=== PATIENT | female | born 1945 | race Caucasian/White ===

== ENCOUNTER 2018-08-18 06:09 | Day surgery (SDC) | payer MEDICARE, OTHER ==
[~2018-08-18 06:09] MED LIST: EPINEPHrine 1 MG/ML SDV ONE; Lactated Ringers 1,000 ML IV SCH; Lidocaine 1%/Sod Bicarbonate in NS 8.4% 1 ML Syringe IDERM PRN; Ropivacaine 0.5% 5 MG/ML 30 ML SDV ONE; Scopolamine 1.5 MG Transdermal Patch TRDERM ONE; Scopolamine 1.5 MG Transdermal Patch TRDERM PRN; Sodium Chloride 0.9% 10 ML Syringe FLUSH PRN
[2018-08-18] MEDS ORDERED: fentaNYL 100 MCG/2 ML SDV ONE (06:18)
[2018-08-18] MEDS ORDERED: Midazolam 1 MG/ML 2 ML SDV ONE (06:18)
[2018-08-18] MEDS ORDERED: Ondansetron 4 MG/2 ML SDV ONE (06:18)
[2018-08-18] MEDS ORDERED: Propofol 200 MG/20 ML SDV ONE ×2 (06:18→08:13)
[2018-08-18] MEDS ORDERED: Lactated Ringers 1,000 ML ONE (06:24)
[2018-08-18] MEDS ORDERED: Bupivacaine 0.75% 30 ML SDV ONE (06:24)
[2018-08-18] MEDS ORDERED: ceFAZolin 1 GM Vial ONE (06:26)
[2018-08-18] MEDS ORDERED: Iodine/Sodium Iodide 2% Tincture 30 ML Bottle ONE (06:26)
--- NOTE | 2018-08-18 06:46 | PCM.PREANE ---
Preanesthetic Assessment - Procedure Proposed Procedure: left total knee replacement - Anesthesia/Transfusion/Family Hx Anesthesia History: Prior Anesthesia Reaction Type of Anesthesia Reaction: Excessive Nausea/Vomiting Family History of Anesthesia Reaction: No Transfusion History: No Prior Transfusion(s) - Review of Systems General: No Symptoms Pulmonary: No Symptoms Cardiovascular: No Symptoms Gastrointestinal: No Symptoms Neurological: No Symptoms Other: Reports: Anxiety - Physical Assessment NPO Status Date: 08/17/18 NPO Status Time: 21:30 O2 Sat by Pulse Oximetry: 98 Respiratory Rate: 16 Vital Signs: Last Vital Signs Temp 97.9 F 08/18/18 06:20 Pulse 66 08/18/18 06:20 Resp 16 08/18/18 06:20 BP 113/72 08/18/18 06:20 Pulse Ox 98 08/18/18 06:20 Height: 5 ft 4 in Weight: 62.777 kg ASA Class: 2 Mental Status: Alert & Oriented x3 Airway Class: Mallampati = 1 Dentition: Reports: Normal Dentition Thyro-Mental Finger Breadths: 3 Mouth Opening Finger Breadths: 3 ROM/Head Extension: Full Lungs: Clear to Auscultation, Normal Respiratory Effort Cardiovascular: Regular Rate, Regular Rhythm - Lab Values: Laboratory Last Values POC Glucose 78 mg/dL (83-110) L 08/18/18 06:35 MRSA (PCR) Negative 07/22/18 12:39 - Allergies Allergies/Adverse Reactions: Allergies Allergy/AdvReac Type Severity Reaction Status Date / Time buspirone [From BuSpar] Allergy Hives Verified 08/17/18 15:15 chocolate flavor Allergy Hives Verified 08/17/18 15:15 mirtazapine [From Remeron] Allergy Lethargy Verified 08/17/18 15:15 sertraline Allergy Hives Verified 08/17/18 15:15 Sulfa (Sulfonamide Allergy Nausea and Verified 08/17/18 15:15 Antibiotics) Vomiting SSRIs Allergy Hives Uncoded 08/17/18 15:15 - Blood Blood Available: No - Acknowledgements Anesthesia Type Planned: Spinal Pt an Appropriate Candidate for the Planned Anesthesia: Yes Alternatives and Risks of Anesthesia Discussed w Pt/Guardian: Yes Pt/Guardian Understands and Agrees with Anesthesia Plan: Yes PreAnesthesia Questionnaire HEENT History: Reports: Allergic Rhinitis, Cataract, Impaired Vision Cardiovascular History: Reports: Other (See Below) Other Cardiovascular History: venous insufficiency, varicose veins with bilateral ligation Respiratory History: Reports: None, Other (See Below) Gastrointestinal History: Reports: Hemorrhoids, Other (See Below) Other Gastrointestinal History: c diff, anal fissure, diarrhea Genitourinary History: Reports: None [employer] History: Reports: Other (See Below) Other OB/BYN History: atrophic vaginits, perineal rash Musculoskeletal History: Reports: Arthritis, Osteoporosis, Other (See Below) Other Musculoskeletal History: knee pain Neurological History: Reports: None Psychiatric History: Reports: Anxiety Endocrine/Metabolic History: Reports: None Hematologic History: Reports: None Immunologic History: Reports: None Oncologic (Cancer) History: Reports: None Dermatologic History: Reports: Other (See Below) Other Dermatologic History: nipple lesion, superfical thrombophlebitis, MOHs surgery - Infectious Disease History Infectious Disease History: Reports: C-Difficile - Past Surgical History Head Surgeries/Procedures: Reports: None HEENT Surgical History: Reports: Cataract Surgery, Tonsillectomy Cardiovascular Surgical History: Reports: None Respiratory Surgical History: Reports: None GI Surgical History: Reports: Cholecystectomy Female Surgical History: Reports: D&C Endocrine Surgical History: Reports: None Neurological Surgical History: Reports: None Oncologic Surgical History: Reports: None - SUBSTANCE USE Smoking Status *Q: Former Smoker (quit 25 years ago) Tobacco Use Within Last Twelve Months: No Second Hand Smoke Exposure: No Days Per Week of Alcohol Use: 1 (rare) Recreational Drug Use History: No - HOME MEDS Home Medications: Home Meds Ca Carbonate/Vitamin D3/Vit K [Calcium + D Soft Chewable Tab] 1 tab PO DAILY [History] Cholecalciferol (Vitamin D3) [Vitamin D3] 1,000 unit PO DAILY 08/17/18 [History] ClonazePAM [KlonoPIN] 0.5 mg PO TID PRN 08/17/18 [History] L Acidophil/B Lactis/B Longum [Florajen3] 460 mg PO DAILY 08/17/18 [History] Nepafenac [Ilevro] 1 drop EYEBOTH DAILY 08/17/18 [History] Vit C/E/Zn/Coppr/Lutein/Zeaxan [Preservision Areds 2 Softgel] 1 cap PO DAILY [History] - CURRENT (IN HOUSE) MEDS Current Meds: Current Medications Lactated Ringer's (Ringers, Lactated) 1,000 mls @ 125 mls/hr IV ASDIRECTED [facility] Lidocaine/Sodium Bicarbonate (Buffered Lidocaine 1% In Ns 8.4%) 0.25 ml IDERM ONETIME PRN PRN Reason: Prior to IV Start Miscellaneous Information (Remove Patch) 1 ea TRDERM ONETIME [facility] Scopolamine (Transderm-Scop) 1.5 mg TRDERM ONETIME PRN PRN Reason: Nausea Sodium Chloride (Saline Flush) 10 ml FLUSH ASDIRECTED PRN PRN Reason: Keep Vein Open Discontinued Medications Bupivacaine HCl (Sensorcaine-Mpf 0.75%) Confirm Administered Dose 30 ml .ROUTE .STK-MED ONE Stop: 08/18/18 06:25 Bupivacaine HCl (Marcaine 0.25%) Confirm Administered Dose 30 ml .ROUTE .STK- MED ONE Stop: 08/18/18 06:27 Cefazolin Sodium (Ancef) Confirm Administered Dose 2 gm .ROUTE .STK-MED ONE Stop: 08/18/18 06:19 Cefazolin Sodium (Ancef) Confirm Administered Dose 2 gm .ROUTE .STK-MED ONE Stop: 08/18/18 06:27 Epinephrine HCl (Adrenalin) Confirm Administered Dose 1 mg .ROUTE .STK-MED ONE Stop: 08/18/18 06:09 Fentanyl (Sublimaze) Confirm Administered Dose 100 mcg .ROUTE .STK-MED ONE Stop: 08/18/18 06:19 Lactated Ringer's (Ringers, Lactated) 1,000 mls @ 125 mls/hr IV ASDIRECTED [facility] Lidocaine HCl (Xylocaine-Mpf 1%) Confirm Administered Dose 5 mls @ as directed .ROUTE .STK-MED ONE Stop: 08/18/18 06:24 Lactated Ringer's (Ringers, Lactated) Confirm Administered Dose 1,000 mls @ as directed .ROUTE .STK-MED ONE Stop: 08/18/18 06:25 Iodine (Iodine 2% Mild Tincture) Confirm Administered Dose 30 ml .ROUTE .STK- MED ONE Stop: 08/18/18 06:27 Lidocaine/Sodium Bicarbonate (Buffered Lidocaine 1% In Ns 8.4%) 0.25 ml IDERM ONETIME PRN PRN Reason: Prior to IV Start Midazolam HCl (Versed 1 Mg/Ml) Confirm Administered Dose 2 mg .ROUTE .STK-MED ONE Stop: 08/18/18 06:19 Ondansetron HCl (Zofran) Confirm Administered Dose 4 mg .ROUTE .STK-MED ONE Stop: 08/18/18 06:19 Propofol (Diprivan 20 Ml) Confirm Administered Dose 400 mg .ROUTE .STK-MED ONE Stop: 08/18/18 06:19 Ropivacaine (Naropin 0.5%) Confirm Administered Dose 30 ml .ROUTE .STK-MED ONE Stop: 08/18/18 06:09 Scopolamine (Transderm-Scop) 0 mg TRDERM ONETIME ONE Stop: 08/17/18 09:36 Sodium Chloride (Saline Flush) 10 ml FLUSH ASDIRECTED PRN PRN Reason: Keep Vein Open Tranexamic Acid (Cyklokapron) Confirm Administered Dose 1,000 mg .ROUTE .STK- MED ONE Stop: 08/18/18 06:27 Vancomycin HCl (Vancomycin) Confirm Administered Dose 1 gm .ROUTE .STK-MED ONE Stop: 08/18/18 06:27
[2018-08-18] MEDS ORDERED: fentaNYL 100 MCG/2 ML SDV IVPUSH PRN (07:31)
[2018-08-18] MEDS ORDERED: Ondansetron 4 MG/2 ML SDV IVPUSH PRN ×2 (07:31→09:30)
[2018-08-18] MEDS ORDERED: ePHEDrine/Normal Saline 25 MG/5 ML Syringe ONE (07:32)
[2018-08-18] MEDS: Morphine 8 MG, EPINEPHrine 0.3 MG, Cefuroxime 750 MG, Ketorolac 30 MG, Sodium Chloride ... ONE ×10 (08:21→08:24)
[2018-08-18] MEDS: ceFAZolin 1 GM Vial ONE ×2 (08:21→08:24)
[2018-08-18] MEDS: Bupivacaine 0.25% 30 ML SDV ONE ×2 (08:22→08:24)
[2018-08-18] MEDS: Vancomycin 1 GM SDV ONE ×2 (08:22→08:27)
[2018-08-18] MEDS ORDERED: Phenylephrine/Normal Saline 100 MCG/ML 10 ML Syringe ONE (08:31)
--- NOTE | 2018-08-18 09:00 | PCM.POSTAN ---
POST ANESTHESIA ASSESSMENT - MENTAL STATUS Mental Status: Alert, Oriented - VITAL SIGNS Pulse Rate: 87 SaO2: 97 Resp Rate: 15 Blood Pressure: 105/54 Temperature: 97.9 F - RESPIRATORY Respiratory Status: Respiratory Rate WNL, Airway Patent, O2 Saturation Stable, Supplemental Oxygen - CARDIOVASCULAR CV Status: Pulse Rate WNL, Blood Pressure Stable - GASTROINTESTINAL GI Status: No Symptoms - PAIN Pain Score: 0 - POST OP HYDRATION Hydration Status: Adequate & Stable
--- NOTE | 2018-08-18 09:25 | PCM.SN ---
- Free Text/Narrative Note: Left selective femoral nerve block at the adductor canal for post-procedure pain control under US guidance requested by Dr. Mccormack. Time Out: 906 Start: 906 End: 916 Chart reviewed. Consent signed. Questions answered. Appropriate monitors applied. Time out performed. Left mid-shaft femur identified with ultrasound, scanning medially of femur, the femoral artery in the adductor canal visualized , and the femoral nerve located laterally to the artery. The skin was prepped lateral to the ultrasound probe with chlorahexadine times two. The 21ga 4 insulated block needle was inserted under direct ultrasound guidance into the adductor canal. 30mL of 0.5% ropivacaine with 1:200,000 epinephrine was injected circumferentially around the nerve with intermittent negative aspiration noted. Patient tolerated the procedure well. Sterile technique noted along with sterile gloves, mask, and sterile probe cover. See picture on progress note and vital signs on nurses notes. Block completed in PACU. Pedro Luis Mac CRNA
[2018-08-18] MEDS ORDERED: Naloxone 0.4 MG/ML SDV IVPUSH PRN (09:30)
[2018-08-18] MEDS ORDERED: Sennosides 8.6 MG Tab PO PRN (09:30)
[2018-08-18] MEDS ORDERED: Cyclobenzaprine 10 MG Tab PO PRN (09:30)
[2018-08-18] MEDS ORDERED: Bisacodyl 5 MG Tab PO PRN (09:30)
[2018-08-18] MEDS ORDERED: Magnesium Hydroxide 400 MG/5 ML Susp 30 ML Cup PO PRN (09:30)
--- NOTE | 2018-08-18 09:59 | CR ---
Left knee: AP and lateral views of the left knee were obtained. Comparison: Prior left knee radiographic study of 07/24/16. Knee prosthesis is seen. Components are aligned. Soft tissue air is noted from the surgical procedure. Underlying bony structures are intact. Impression: 1. Satisfactory postop radiographic appearance of recently placed left knee prosthesis. Diagnostic code #2
[2018-08-18] MEDS ORDERED: ClonazePAM 0.5 MG Tab PO PRN (12:44)
[2018-08-18] MEDS: ceFAZolin 2 GM in Premix Bag 1 BAG IV SCH ×2 (14:38→22:05)
--- NOTE | 2018-08-18 17:06 | PCM.SN ---
- Free Text/Narrative Note: Jodie is a 73 [address] of Dr[address] Mccormack who is post-operative day 0 of L TKA. Hospital medicine was consulted for post-operative medical care. At this time she is stable. Pain is controlled. She denies any chest pain, shortness of breath, palpitations, nausea, or vomiting. She carries a history of: Anxiety, Osteoporosis, Postmenopausal, venous insufficiency, Cdiff, superfical thrombophlebitis. She is a former smoker, quit 25 years ago. She is a full code. Her PCP is Stephanie Rose PA-C.
[2018-08-18] MEDS: Ketorolac 15 MG/ML SDV IVPUSH PRN (17:36)
[2018-08-18] MEDS: Famotidine 20 MG Tab PO SCH (20:08)
[2018-08-18] MEDS: Docusate Sodium 100 MG Cap PO SCH (20:08)
[2018-08-18] MEDS: Acetaminophen/HYDROcodone 325-5 MG Tab PO PRN (20:10)
[2018-08-19] MEDS: Acetaminophen/HYDROcodone 325-5 MG Tab PO PRN ×3 (01:14→12:09)
[2018-08-19] MEDS: Ketorolac 15 MG/ML SDV IVPUSH PRN (01:15)
[2018-08-19] MEDS: ceFAZolin 2 GM in Premix Bag 1 BAG IV SCH (06:02)
--- NOTE | 2018-08-19 06:27 | PCM.SN ---
- Free Text/Narrative Note: In to see Jodie. She is sitting up in a chair and nursing is in the room. She is postop day 1 of a left total knee arthroplasty. She reports pain is controlled on she is somewhat sleepy from her pain pills. She answers questions appropriately. She's been up working with therapies and says she is doing well. She has been ambulating. She has urinated and is off of oxygen. She has no complaint at this time. She denies any headache, nausea, vomiting, shortness of breath, chest pain, palpitations, abdominal pain, or burning with urination. She did have a brief episode of lightheadedness after receiving her pain pill but does report that resolved with her morning meal. Physical exam is grossly unremarkable with good lung sounds throughout all quadrants, normal S1 and S2, regular rate and rhythm. Bowel sounds are active with no tenderness noted. Bandages in place on left knee and is dry and intact. Going back is in place. She is neurovascularly intact with good sensation and pulses in all extremities. Labs are reviewed and her preoperative hemoglobin was noted to be 12.3. It is now 11.4. Preoperative BUN was 25 and is now 17. GFR is currently greater than 60. Vital signs were reviewed and are stable. From a hospitalist standpoint she is doing very well. She is clear for discharge pending primary team and PT/OT agreement.
--- NOTE | 2018-08-19 08:35 | PCM.SURGPN ---
- General Info Date of Service: 08/19/18 POD#: 1 Functional Status: Reports: Pain Controlled, Tolerating Diet, Ambulating, Urinating, Incentive Spirometry, Other (The pt's daughter was present with pt today.) - Patient Data Vitals - Most Recent: Last Vital Signs Temp 98.4 F 08/19/18 04:19 Pulse 72 08/19/18 04:19 Resp 18 08/19/18 04:00 BP 106/62 08/19/18 04:19 Pulse Ox 93 L 08/19/18 04:19 Weight - Most Recent: 145 lb 8 oz I&O - Last 24 Hours: Intake & Output 08/18/18 08/19/18 08/19/18 22:59 06:59 14:59 Intake Total 920 850 Output Total 400 1200 Balance 520 -350 Lab Results Last 24 Hrs: Laboratory Results - last 24 hr 08/19/18 08/19/18 Range/Units 06:30 06:30 WBC 4.96 (3.98-10.04) K/mm3 RBC 3.97 L (3.98-5.22) M/mm3 Hgb 11.4 (11.2-15.7) gm/L Hct 36.8 (34.1-44.9) % MCV 92.7 (79.4-94.8) fl MCH 28.7 (25.6-32.2) pg MCHC 31.0 L (32.2-35.5) g/dl RDW Std Deviation 46.5 H (36.4-46.3) fL Plt Count 199 (182-369) K/mm3 MPV 10.2 (9.4-12.3) fl Sodium 141 (136-145) mEq/L Potassium 4.1 (3.5-5.1) mEq/L Chloride 106 (98-107) mEq/L Carbon Dioxide 29 (21-32) mEq/L Anion Gap 10.1 (5-15) BUN 17 (7-18) mg/dL Creatinine 0.8 (0.55-1.02) mg/dL Est Cr Clr Drug Dosing 52.47 mL/min Estimated GFR (MDRD) > 60 (>60) mL/min BUN/Creatinine Ratio 21.3 H (14-18) Glucose 106 (83-115) mg/dL Calcium 8.7 (8.5-10.1) mg/dL Total Bilirubin 0.5 (0.2-1.0) mg/dL AST 23 (15-37) U/L ALT 20 (14-59) U/L Alkaline Phosphatase 59 (46-116) U/L Total Protein 6.0 L (6.4-8.2) g/dl Albumin 2.9 L (3.4-5.0) g/dl Globulin 3.1 gm/dL Albumin/Globulin Ratio 0.9 L (1-2) Med Orders - Current: Current Medications Hydrocodone Bitart/Acetaminophen (Mobile 325-5 Mg) 1 - 2 tab PO Q4H PRN PRN Reason: Pain Last Admin: 08/19/18 05:58 Dose: 2 tab Aspirin (Ecotrin) 325 mg PO BID [facility] Bisacodyl (Dulcolax) 5 mg PO DAILY PRN PRN Reason: Constipation Cholecalciferol (Vitamin D3) 1,000 units PO DAILY [facility] Clonazepam (Klonopin) 0.5 mg PO TID PRN PRN Reason: Anxiety Cyclobenzaprine HCl (Flexeril) 10 mg PO BID PRN PRN Reason: Spasms Docusate Sodium (Colace) 100 mg PO BID [facility] Last Admin: 08/18/18 20:08 Dose: 100 mg Famotidine (Pepcid) 20 mg PO Q12H [facility] Last Admin: 08/18/18 20:08 Dose: 20 mg Magnesium Hydroxide (Milk Of Magnesia) 30 ml PO BID PRN PRN Reason: Constipation Miscellaneous Information (Remove Patch) 1 ea TRDERM ONETIME [facility] Naloxone HCl (Narcan) 0.1 mg IVPUSH Q5M PRN PRN Reason: Oversedation Ondansetron HCl (Zofran) 4 mg IVPUSH Q6H PRN PRN Reason: Nausea/Vomiting Nepafenac [Ilevro] 1 (Drop) 0 each EYEBOTH DAILY [facility] Saccharomyces Boulardii (Florastor) 250 mg PO DAILY [facility] Scopolamine (Transderm-Scop) 1.5 mg TRDERM ONETIME PRN PRN Reason: Nausea Last Admin: 08/18/18 07:03 Dose: 1.5 mg Senna (Senna) 8.6 mg PO BID PRN PRN Reason: Constipation Sodium Chloride (Saline Flush) 10 ml FLUSH ASDIRECTED PRN PRN Reason: Keep Vein Open Discontinued Medications Bupivacaine HCl (Sensorcaine-Mpf 0.75%) Confirm Administered Dose 30 ml .ROUTE .STK-MED ONE Stop: 08/18/18 06:25 Bupivacaine HCl (Marcaine 0.25%) Confirm Administered Dose 30 ml .ROUTE .STK- MED ONE Stop: 08/18/18 06:27 Last Admin: 08/18/18 08:24 Dose: 30 ml Cefazolin Sodium (Ancef) Confirm Administered Dose 2 gm .ROUTE .STK-MED ONE Stop: 08/18/18 06:19 Last Admin: 08/18/18 08:24 Dose: 2 gm Cefazolin Sodium (Ancef) Confirm Administered Dose 2 gm .ROUTE .STK-MED ONE Stop: 08/18/18 06:27 Morphine Sulfate 8 mg/Epinephrine HCl 0.3 mg/Cefuroxime Sodium 750 mg/Ketorolac Tromethamine 30 mg/Sodium Chloride 27.9 ml 0 mg .XX ONETIME ONE Stop: 08/18/18 07:31 Last Admin: 08/18/18 08:24 Dose: 788.3 mg Ephedrine Sulfate (Ephedrine In Ns) Confirm Administered Dose 25 mg .ROUTE .STK- MED ONE Stop: 08/18/18 07:33 Epinephrine HCl (Adrenalin) Confirm Administered Dose 1 mg .ROUTE .STK-MED ONE Stop: 08/18/18 06:09 Fentanyl (Sublimaze) Confirm Administered Dose 100 mcg .ROUTE .STK-MED ONE Stop: 08/18/18 06:19 Fentanyl (Sublimaze) 50 mcg IVPUSH Q5M PRN PRN Reason: Pain Stop: 08/18/18 12:00 Lactated Ringer's (Ringers, Lactated) 1,000 mls @ 125 mls/hr IV ASDIRECTED [facility] Lactated Ringer's (Ringers, Lactated) 1,000 mls @ 125 mls/hr IV ASDIRECTED [facility] Last Admin: 08/18/18 06:30 Dose: 125 mls/hr Lidocaine HCl (Xylocaine-Mpf 1%) Confirm Administered Dose 5 mls @ as directed .ROUTE .STK-MED ONE Stop: 08/18/18 06:24 Lactated Ringer's (Ringers, Lactated) Confirm Administered Dose 1,000 mls @ as directed .ROUTE .STK-MED ONE Stop: 08/18/18 06:25 Cefazolin Sodium/Dextrose 2 gm (/ Premix) 50 mls @ 100 mls/hr IV Q8H [facility] Stop: 08/19/18 07:29 Last Admin: 08/19/18 06:02 Dose: 100 mls/hr Iodine (Iodine 2% Mild Tincture) Confirm Administered Dose 30 ml .ROUTE .STK- MED ONE Stop: 08/18/18 06:27 Last Admin: 08/18/18 08:20 Dose: 18 ml Ketorolac Tromethamine (Toradol) 15 mg IVPUSH Q6H PRN PRN Reason: Pain Last Admin: 08/19/18 01:15 Dose: 15 mg Lidocaine/Sodium Bicarbonate (Buffered Lidocaine 1% In Ns 8.4%) 0.25 ml IDERM ONETIME PRN PRN Reason: Prior to IV Start Lidocaine/Sodium Bicarbonate (Buffered Lidocaine 1% In Ns 8.4%) 0.25 ml IDERM ONETIME PRN PRN Reason: Prior to IV Start Last Admin: 08/18/18 06:25 Dose: 0.25 ml Midazolam HCl (Versed 1 Mg/Ml) Confirm Administered Dose 2 mg .ROUTE .STK-MED ONE Stop: 08/18/18 06:19 Ondansetron HCl (Zofran) Confirm Administered Dose 4 mg .ROUTE .STK-MED ONE Stop: 08/18/18 06:19 Ondansetron HCl (Zofran) 4 mg IVPUSH ONETIME PRN PRN Reason: Nausea/Vomiting Stop: 08/18/18 12:00 Phenylephrine HCl (Phenylephrine In Ns 100 Mcg/Ml) Confirm Administered Dose 1 mg .ROUTE .STK-MED ONE Stop: 08/18/18 08:32 Propofol (Diprivan 20 Ml) Confirm Administered Dose 400 mg .ROUTE .STK-MED ONE Stop: 08/18/18 06:19 Propofol (Diprivan 20 Ml) Confirm Administered Dose 200 mg .ROUTE .STK-MED ONE Stop: 08/18/18 08:14 Ropivacaine (Naropin 0.5%) Confirm Administered Dose 30 ml .ROUTE .STK-MED ONE Stop: 08/18/18 06:09 Scopolamine (Transderm-Scop) 0 mg TRDERM ONETIME ONE Stop: 08/17/18 09:36 Sodium Chloride (Saline Flush) 10 ml FLUSH ASDIRECTED PRN PRN Reason: Keep Vein Open Tranexamic Acid (Cyklokapron) Confirm Administered Dose 1,000 mg .ROUTE .STK- MED ONE Stop: 08/18/18 06:27 Last Admin: 08/18/18 08:31 Dose: 1,000 mg Vancomycin HCl (Vancomycin) Confirm Administered Dose 1 gm .ROUTE .STK-MED ONE Stop: 08/18/18 06:27 Last Admin: 08/18/18 08:27 Dose: 1 gm - Exam Wound/Incisions: Dressing Dry and Intact General: Alert, Cooperative, No Acute Distress Lungs: Normal Respiratory Effort Extremities: Other (NVS intact for BLE. Jr's negative.) - Problem List Review Problem List Initiated/Reviewed/Updated: Yes - My Orders Last 24 Hours: Active Orders 24 hr Category Date Time Status Ready for Discharge [RC] PER UNIT ROUTINE Care 08/19/18 08:23 Active Regular Diet [DIET] Diet 08/18/18 Lunch Active Acetaminophen/HYDROcodone [Mobile 325-5 MG] Med 08/18/18 09:30 Active 1 - 2 tab PO Q4H PRN Aspirin [Ecotrin] Med 08/19/18 09:00 Active 325 mg PO BID Bisacodyl [Dulcolax] Med 08/18/18 09:30 Active 5 mg PO DAILY PRN Cholecalciferol (Vitamin D3) [Vitamin D3] Med 08/19/18 09:00 Active 1,000 units PO DAILY ClonazePAM [KlonoPIN] Med 08/18/18 12:44 Active 0.5 mg PO TID PRN Cyclobenzaprine [Flexeril] Med 08/18/18 09:30 Active 10 mg PO BID PRN Docusate Sodium [Colace] Med 08/18/18 21:00 Active 100 mg PO BID Famotidine [Pepcid] Med 08/18/18 21:00 Active 20 mg PO Q12H Magnesium Hydroxide [Milk of Magnesia] Med 08/18/18 09:30 Active 30 ml PO BID PRN Naloxone [Narcan] Med 08/18/18 09:30 Active 0.1 mg IVPUSH Q5M PRN Ondansetron [Zofran] Med 01/17/19 09:30 Active 4 mg IVPUSH Q6H PRN Patient's Own Medication [Ptom] Med 08/19/18 09:00 Active 0 each EYEBOTH DAILY Remove Patch Med 08/21/18 05:00 Active 1 ea TRDERM ONETIME Saccharomyces Boulardii [Florastor] Med 08/19/18 09:00 Active 250 mg PO DAILY Sennosides [Senna] Med 08/18/18 09:30 Active 8.6 mg PO BID PRN Medication Orders Hydrocodone Bitart/Acetaminophen (Mobile 325-5 Mg) 1 - 2 tab PO Q4H PRN PRN Reason: Pain Last Admin: 08/19/18 05:58 Dose: 2 tab Admin: 08/19/18 01:14 Dose: 2 tab Admin: 08/18/18 20:10 Dose: 1 tab Aspirin (Ecotrin) 325 mg PO BID [facility] Bisacodyl (Dulcolax) 5 mg PO DAILY PRN PRN Reason: Constipation Cholecalciferol (Vitamin D3) 1,000 units PO DAILY [facility] Clonazepam (Klonopin) 0.5 mg PO TID PRN PRN Reason: Anxiety Cyclobenzaprine HCl (Flexeril) 10 mg PO BID PRN PRN Reason: Spasms Docusate Sodium (Colace) 100 mg PO BID [facility] Last Admin: 08/18/18 20:08 Dose: 100 mg Famotidine (Pepcid) 20 mg PO Q12H [facility] Last Admin: 08/18/18 20:08 Dose: 20 mg Magnesium Hydroxide (Milk Of Magnesia) 30 ml PO BID PRN PRN Reason: Constipation Miscellaneous Information (Remove Patch) 1 ea TRDERM ONETIME [facility] Naloxone HCl (Narcan) 0.1 mg IVPUSH Q5M PRN PRN Reason: Oversedation Ondansetron HCl (Zofran) 4 mg IVPUSH Q6H PRN PRN Reason: Nausea/Vomiting Nepafenac [Ilevro] 1 (Drop) 0 each EYEBOTH DAILY [facility] Saccharomyces Boulardii (Florastor) 250 mg PO DAILY [facility] Scopolamine (Transderm-Scop) 1.5 mg TRDERM ONETIME PRN PRN Reason: Nausea Last Admin: 08/18/18 07:03 Dose: 1.5 mg Senna (Senna) 8.6 mg PO BID PRN PRN Reason: Constipation Sodium Chloride (Saline Flush) 10 ml FLUSH ASDIRECTED PRN PRN Reason: Keep Vein Open - Assessment Assessment (Free Text/Narrative):: POD#1 - left TKA - Plan Plan (Free Text/Narrative):: 1. Hgb 11.4. 2. 325mg PO BID, frequent mobility, TEDs. 3. Mobile for pain management. 4. Discharge to home today. The pt's case was discussed with Dr. Mccormack.
[2018-08-19] MEDS ORDERED: Cholecalciferol (Vitamin D3) 1,000 Unit Tab PO SCH (09:00)
[2018-08-19] MEDS ORDERED: NEPAFENAC EYEBOTH SCH (09:00)
[2018-08-19] MEDS ORDERED: Aspirin 325 MG Tab.EC PO SCH (09:00)
[2018-08-19] MEDS ORDERED: Saccharomyces Boulardii (Probiotic) 250 MG Cap PO SCH (09:00)
[2018-08-19] MEDS: Famotidine 20 MG Tab PO SCH (09:16)
[2018-08-19] MEDS: Docusate Sodium 100 MG Cap PO SCH (09:16)
--- NOTE | 2018-08-19 09:45 | PCM48HPAN ---
Post Anesthesia Note - EVALUATION WITHIN 48HRS OF ANESTHETIC Vital Signs in Normal Range: Yes Patient Participated in Evaluation: Yes Respiratory Function Stable: Yes Airway Patent: Yes Cardiovascular Function Stable: Yes Hydration Status Stable: Yes Pain Control Satisfactory: Yes Nausea and Vomiting Control Satisfactory: Yes Mental Status Recovered: Yes - COMMENTS/OBSERVATIONS Free Text/Narrative:: Patient denies any symptoms of PDPH, back pain, and any residual numbness or tingling to LE. Doing well, working with therapy.
--- NOTE | 2018-08-24 07:12 | PCM.OPNOTE ---
- General Post-Op/Procedure Note Date of Surgery/Procedure: 08/18/18 Operative Procedure(s): left total knee arthroplasty Pre Op Diagnosis: left knee osteoarthrosis Post-Op Diagnosis: Same Anesthesia Technique: Local, MAC, Spinal Primary Surgeon: Sunday Mccormack Anesthesia Provider: Pedro Luis Mac [employer] Sales Representative: Alyssa [employer] Sales Representative: Krissy Stanton in mLs: 5 Complications: None Condition: Good Free Text/Narrative:: cemented size 3 size3 29x9
--- NOTE | 2018-08-24 14:22 | OR ---
DATE OF OPERATION: 08/18/2018 SURGEON: Sunday Mccormack MD OPERATION PERFORMED: Left total knee arthroplasty. PREOPERATIVE DIAGNOSIS: Left knee osteoarthrosis. POSTOPERATIVE DIAGNOSIS: Left knee osteoarthrosis. ANESTHESIA: Local MAC with spinal. ANESTHESIA PROVIDER: Pedro Luis Mac CRNA. DRIP MOLDER: Alyssa Silver PA-C and Krissy Stanton LPN. ESTIMATED BLOOD LOSS: 5 mL COMPLICATIONS: None. CONDITION: Stable. IMPLANTS: 1. Kodak size 3 cemented PS femur. 2. Kodak size 3 cemented tibial base plate. 3. Brynn size 3, 9 mm PS X3 polyethylene. 4. Kodak size 29 x 9 mm cemented asymmetric patella. DESCRIPTION OF PROCEDURE: The patient was identified in the preop holding area. Proper site was marked and identified by the surgeon. The patient was taken back to the operating theater. After adequate anesthesia, the patient's left lower extremity had a nonsterile tourniquet applied and it was sterilely prepped and draped in the usual sterile fashion. OR time-out was performed. The patient received 2 g IV Ancef. At this time, the left lower extremity was exsanguinated. Tourniquet was insufflated to 300 mmHg. Standard medial parapatellar incision was made. Medial parapatellar arthrotomy was created. Deep fibers of the MCL were raised and anterior fat pad was resected. At this time, attention was turned to the patella. Patella measured 21, it was resected to a 13 for 29 x 9 mm patella. Drill holes were then drilled and found to be in adequate position. The drill was then drilled in the distal femur and the intramedullary distal femoral cutting guide was then placed. 8 mm was resected off the distal femur and was found to be an adequate resection. Sizing guide was placed. It was found to be a size 3 cemented PS femur that was shown on the implant record at the beginning of this dictation. The drill holes were drilled for the epicondylar axis using Whitesides line and epicondyles as reference. At this time, the 4-in-1 cutting block was placed. An anterior posterior and anterior and posterior chamfer cuts were then completed. Box cut was then cut and found to be adequate. Attention was turned to the tibia. The posterior medial lateral retractors were placed. The extramedullary tibial guide was placed. It was placed in the old footprint of the ACL. It was aligned with the center of the ankle and 0 degrees of slope, 9 mm was then resected off the unaffected side. There was found to be an acceptable reduction. At this time, posterior osteophytes were removed along with medial and lateral meniscus. A trial implant was placed with a correct sized tibia that was mentioned at the beginning of the dictation. A Brynn size 3, 9 mm PS X3 polyethylene was then placed. The patient's knee was brought through range of motion. The patella was tracking centrally and was stable to varus and valgus stress. Alignment was found to be roughly at 0 degrees. The tibia was stamped and drilled in proper rotation. All cut surfaces were irrigated and completed dried as cement was mixed on the back table. The universal tibial base plate was cemented in place. Next, the [employer]ak size 3 cemented PS femur impacted into place and the Brynn size 3, 9 mm PS X3 polyethylene was placed. The patient's knee was brought into full extension. The patella was then cemented in place at this time. One liter dilute Betadine solution was irrigated through the knee along with 3 L of pulse lavage irrigation with Ancef. Periarticular injection was then completed. The patient's knee was brought through a range of motion. Once the cement had time to set up and it was found to be stable to varus valgus stress, the patella was tracking centrally with full range of motion. At this time, a #2 barbed suture was used for closure of the medial parapatellar arthrotomy. Topical tranexamic acid was placed. 2-0 Vicryl was used subcutaneously, Prineo was used for the skin. The patient tolerated the procedure well and was sent to the PACU in stable condition. MMODAL /[id number] DOT
== END 2018-08-19 12:47 | disposition home or self-care (01) ==
LOC: JD.SDS 06:09 → JD.MS 08:52 → JD.SDS 08-19 12:47
PROVIDERS: ATTEND Orthopaedic Surgery
DX: M17.12 Unilateral primary osteoarthritis, left knee (principal); M81.6 Localized osteoporosis [Lequesne]; F41.9 Anxiety disorder, unspecified; Z87.891 Personal history of nicotine dependence; Z79.899 Other long term (current) drug therapy; Z88.2 Allergy status to sulfonamides; Z88.8 Allergy status to other drugs, medicaments and biological substances; Z88.1 Allergy status to other antibiotic agents
CPT/HCPCS: 27447; 36415; 64447; 73560; 80053; 82962; 85027; 87641; 94760; 97110; 97116; 97161; 97165; 97535; A9270; C1713; C1776; J0171; J0690; J0697; J1885; J2250; J2270; J2370; J2405; J2704; J2795; J3010; J3370; J3490; J7050; J7120; 01402; 64450